=== PATIENT | female | born 1955 | race African-American/Black ===

== ENCOUNTER 2016-11-12 13:51 | Emergency (ER) | payer SELFPAY ==
[~2016-11-12] VITALS: Ht 167.6 cm; Wt 106.6 kg
[2016-11-12] MEDS ORDERED: NKM (14:00)
[2016-11-12 14:11] VITALS: BP 163/92
[2016-11-12] MEDS ORDERED: IBUPROFEN600 MG ORAL (14:21)
[2016-11-12] MEDS ORDERED: CEPHALEXIN500 MG ORAL (14:21)
--- NOTE | 2016-11-12 14:34 | Emergency Room Report ---
History of Present Illness General Chief Complaint: Foreign Body Source: Patient Present Illness HPI The patient is a 60-year-old female presenting for nasal foreign body. She states that she had a nasal piercing done 2 weeks prior. She has noticed pain and swelling to the area which began one week prior. Pain is a 5 at 10 dull ache and does not radiate from the right nostril. Worse with touch. She states that she has not been able to see the head of the piercing for the past few days. She denies any fever or chills. She denies any nasal discharge. She denies any other symptoms Allergies: Coded Allergies: No Known Allergies (Unverified , 11/12/16) Patient History Past Medical History: see triage record Pertinent Family History: none Last Menstrual Period: Post Reviewed Nursing Documentation: PMH: Agreed, PSxH: Agreed Nursing Documentation-PMH Past Medical History: No History, Except For Review of Systems All Other Systems: negative except mentioned in HPI Physical Exam Vital Signs Date Time Temp Pulse Resp B/P (MAP) Pulse Ox O2 Delivery O2 Flow Rate FiO2 11/12/16 13:55 98.2 85 19 163/92 98 Room Air Sp02 EP Interpretation: reviewed, normal General Appearance: no apparent distress, alert, GCS 15, non-toxic Head: normocephalic, atraumatic Eyes: bilateral eye normal inspection, bilateral eye PERRL ENT: normal pharynx, normal voice, uvula midline, other - R nose unable to see or palpate head of peircing. Back portion of piercing easily visualized. Neck: full range of motion, supple/symm/no masses Respiratory: chest non-tender, lungs clear, normal breath sounds, speaking full sentences Cardiovascular #1: regular rate, rhythm, no edema Musculoskeletal: back normal, gait/station normal, normal range of motion, non- tender Neurologic: alert, oriented x3, responsive, motor strength/tone normal, sensory intact, speech normal Psychiatric: judgement/insight normal, memory normal, mood/affect normal, no suicidal/homicidal ideation Skin: normal color, warm/dry, well hydrated Lymphatic: no adenopathy Medical Decision Making PA Attestation Dr. Jerez is my supervising physician. Patient management was discussed with my supervising physician Diagnostic Impression: Primary Impression: Superficial foreign body of nose with infection Qualified Codes: S00.35XA - Superficial foreign body of nose, initial encounter; L08.9 - Local infection of the skin and subcutaneous tissue, unspecified ER Course The patient is a [id number] female with a nasal piercing presenting for inability to remove it Differential diagnoses considered but not limited to: Foreign body, cellulitis, abscess, among others Physical exam: Afebrile. No apparent distress Right nare reveals the back end of the piercing. Unable to visualize the head of the piercing due to edema. There is tenderness to palpation over the external right nare. No nasal discharge. No bleeding. No fluctuance. The piercing was removed by pulling the entire structure to the internal side. Minimal bleeding. Areas cleaned with normal saline and Betadine. She'll be discharged home with a prescription for Motrin and Keflex. ER precautions are given Last Vital Signs Date Time Temp Pulse Resp B/P (MAP) Pulse Ox O2 Delivery O2 Flow Rate FiO2 11/12/16 14:11 98.2 19 163/92 98 Room Air 11/12/16 13:55 85 Status: improved Disposition: HOME, SELF-CARE Condition: Improved Scripts Cephalexin* (KEFLEX*) 500 Mg Capsule 500 MG ORAL EVERY 12 HOURS, #14 CAP 0 Refills Prov: LIBERTY RAMOS P.A. 11/12/16 Ibuprofen* (MOTRIN*) 600 Mg Tablet 600 MG ORAL Q8H Y for For Pain, #30 TAB 0 Refills Prov: LIBERTY RAMOS P.A. 11/12/16 Patient Instructions: Nasal Foreign Body Additional Instructions: I discussed my findings with the patient. All questions and concerns have been answered. Treatment and medication compliance have been addressed. I advised the patient that they need to follow up with PMD in 3-5 days. Return to ED if symptoms worsen, new symptoms arise, or if needed for any reason. Patient verbalized understanding of discharge instructions. LIBERTY RAMOS Nov 12, 2016 14:34
== END 2016-11-12 14:34 | disposition home or self-care (01) ==
LOC: EMR 14:18
DX: S00.35XA Superficial foreign body of nose, initial encounter (principal); L08.9 Local infection of the skin and subcutaneous tissue, unspecified; X58.XXXA Exposure to other specified factors, initial encounter; Y92.9 Unspecified place or not applicable
CPT/HCPCS: 99283